=== PATIENT | male | born 1935 | race African-American/Black ===

== ENCOUNTER 2016-12-02 11:57 | Day surgery (SDC) | payer MEDICARE, OTHER ==
[~2016-12-02] VITALS: Ht 185.4 cm; Wt 102.0 kg
[~2016-12-02 11:57] MED LIST: AMLO5TAB2 PO; ASPI81CH CHEW; CLOP75TA PO; DUTA1CAP2 PO; LATA0.002 EACH EYE; LEVEMIR SQ; METO-338 PO; PRAV40TA2 PO; TOBRO RIGHT EYE
[2016-12-02 13:12] VITALS: BP 153/81; PULSE 102; RESP 18; O2SAT 97
[2016-12-02 13:37] LABS: AUTOMATED NEUTROPHIL # 12.1 TH/MM3 (1.8-7.7); BASOPHIL # 0.1 TH/MM3 (0-0.2); BASOPHIL % 0.5 % (0.0-2.0); EOSINOPHIL % 0.3 % (0.0-4.0); HEMO FLAGS DIFF FINAL; LYMPH % 9.9 % (9.0-44.0); LYMPHOCYTE # 1.5 TH/MM3 (1.0-4.8); MEAN CELL VOLUME 88.4 FL (80.0-100.0); MEAN CORPUSCULAR HEMOGLOBIN 28.1 PG (27.0-34.0); MEAN CORPUSCULAR HGB CONC 31.8 % (32.0-36.0); MONO % 8.3 % (0.0-8.0); PLATELET COUNT 461 TH/MM3 (150-450); RED BLOOD COUNT 3.51 MIL/MM3 (4.50-5.90)
[2016-12-02] MEDS ORDERED: FURO20TA PO (13:43)
[2016-12-02] MEDS ORDERED: POTA-163 PO (13:43)
[2016-12-02] MEDS ORDERED: PROS5TAB PO (13:43)
[2016-12-02] MEDS ORDERED: ZINC220T PO (13:43)
[2016-12-02] MEDS ORDERED: METF500T PO (13:43)
[2016-12-02] MEDS ORDERED: VITA500C18 PO (13:43)
[2016-12-02 14:02] LABS: INTERNATIONAL NORMALIZED RATIO 1.1 RATIO
[2016-12-02] MEDS ORDERED: MIDAZOLAM HCL 5 MG/ML VIAL (1 ML) ONE (14:03)
[2016-12-02] MEDS ORDERED: HEPARIN SODIUM - IV 10,000 UNITS/10 ML VIAL ONE (14:03)
[2016-12-02 14:07] LABS: BICARBONATE 25.8 MEQ/L (21.0-32.0); POTASSIUM 4.1 MEQ/L (3.5-5.1)
[2016-12-02] MEDS ORDERED: IOHEXOL 300 INJ 50 ML IV ONE (15:44)
[2016-12-02] MEDS ORDERED: CLOPIDOGREL 300 MG TAB ONE (15:55)
[2016-12-02] MEDS ORDERED: CLOPIDOGREL 300 MG TAB PO ONE (16:00)
--- NOTE | 2016-12-02 21:40 | MA ---
cc: DANNY HARRISON DATE OF OPERATION 12/02/2016 ATTENDING PHYSICIAN Danny Harrison DO PREOPERATIVE DIAGNOSIS Nonhealing TMA left lower extremity. POSTOPERATIVE DIAGNOSIS Nonhealing TMA left lower extremity. PROCEDURE 1. Aortogram. 2. Selective left lower extremity arteriogram. 3. Atherectomy and balloon angioplasty of the left superficial femoral artery. 4. Balloon angioplasty of left peroneal arteries. ANESTHESIA Moderate sedation. IV FLUIDS Approximately 1 liter. ESTIMATED BLOOD LOSS Minimal. URINE OUTPUT Not calculated. COMPLICATIONS None. DISPOSITION To PACU. PROCEDURE The patient's right groin was prepped and draped in sterile fashion after being under moderate sedation. I got access to the right common femoral artery using duplex ultrasound after using 1 cc of 1% lidocaine. I got access to the vessel with a 21 gauge needle exchanged over a 4-Fijian micropuncture catheter for a 5-Fijian sheath. I then advanced an Omni flush catheter and stiff angled Glidewire in the abdominal aorta, shot an AP aortogram. I pulled my catheter and shot pelvic oblique arteriograms. I then selected out the left external iliac artery and then shot a selective left lower extremity arteriogram. After I was finished shooting the selective left lower extremity arteriogram I exchanged for a 6-Fijian 45 cm destination sheath and then heparinized the patient to an ACT of greater than 200. My findings were that the abdominal aorta and bilateral renal arteries were widely patent. The bilateral common internal, external iliac arteries widely patent. The right common femoral and profunda and proximal SFA arteries were widely patent. The left common femoral and profunda femoral arteries were patent. The left superficial femoral artery had what appeared to be at least a moderate stenosis versus high-grade stenosis of the left superficial femoral artery. The patient also had a high-grade stenosis. The left popliteal artery was patent. The patient had a single-vessel runoff to the peroneal artery. The tibioperoneal trunk, the peroneal artery interface was where there was a high-grade stenosis. I used a stiff angled Glidewire and a quick cross catheter in order to get across both stenoses. Afterwards I made sure I was intraluminal and then exchanged for a __ wire. I then used a 2-0 CSI atherectomy device to debulk the left SFA because there was extensive calcification. Afterwards, I did perform balloon angioplasty with a 5-mm x 4-cm balloon in this area and then I also performed balloon angioplasty with a 3 mm x 4 cm balloon in the left proximal tibioperoneal/peroneal artery. At the end of the procedure there was no residual stenosis in the left SFA and there was still some mild narrowing of the left peroneal artery but there was brisk flow that could be noted going down the leg to the foot. At the end of procedure I exchanged for a 6-Fijian Angio-Seal and applied pressure to the right groin for two minutes. The patient tolerated the procedure well. DO LIZA Montes/MILA /3:35 PM /9:19 PM
== END 2016-12-02 18:45 ==
LOC: HCVO 11:57 → HDIC 11:58 → HCVO 18:45
PROVIDERS: ATTEND Surgery
DX: I70.202 Unspecified atherosclerosis of native arteries of extremities, left leg (principal); I10 Essential (primary) hypertension; J44.9 Chronic obstructive pulmonary disease, unspecified; E78.00 Pure hypercholesterolemia, unspecified; E11.9 Type 2 diabetes mellitus without complications; Z79.4 Long term (current) use of insulin
CPT/HCPCS: 37225; 75710; 80048; 85002; 85025; 85610; 99152; 99153; C1725; C1769; G0269; J1644; J2250; J3010